=== PATIENT | male | born 1985 | race Caucasian/White ===

== ENCOUNTER 2022-12-12 12:12 | Emergency (ER) | payer OTHER ==
[~2022-12-12] VITALS: Ht 167.6 cm; Wt 69.5 kg
[2022-12-12 12:34] VITALS: TEMP 98.3
[2022-12-12] MEDS ORDERED: HYDROGEN PEROXIDE 118 ML SOLUTION TP ONE (13:15)
[2022-12-12 13:40] VITALS: BP 122/86; PULSE 62; RESP 18
[2022-12-12] MEDS ORDERED: NEOMYCIN/POLYMYXIN B/HYDROCORT 10 ML OTIC SUSPENSION AS ONE (13:45)
== END 2022-12-12 14:05 | disposition home or self-care (01) ==
LOC: EMS 12:15
DX: H61.22 Impacted cerumen, left ear (principal); H60.92 Unspecified otitis externa, left ear
CPT/HCPCS: 69209; 99283